=== PATIENT | male | born 1970 | race African-American/Black ===

== ENCOUNTER 2016-11-19 07:39 | Day surgery (SDC) | payer BC ==
[2016-11-17 12:38] LABS: BASOPHILS 0.9 %; BASOPHILS ABSOLUTE 0.04 10/3/uL (0.0-0.16); EOSINOPHILS 2.2 %; HEMATOCRIT 41.2 % (40.0-51.0); HEMOGLOBIN 14.1 g/dL (13.6-17.8); LYMPHOCYTES 29.8 %; LYMPHOCYTES ABSOLUTE 1.33 10/3/uL (0.67-4.30); MEAN CORPUS HGB CONC 34.2 g/dL (32.0-36.0); MEAN CORPUSCULAR HEMOGLOB 32.8 pg (26.0-34.0); MEAN CORPUSCULAR VOLUME 95.8 fL (80-100); MEAN PLATELET VOLUME 9.2 fL (9.2-13.0); MONOCYTES 8.1 %; MONOCYTES ABSOLUTE 0.36 10/3/uL (0.21-1.20); NEUTROPHILS ABSOLUTE 2.64 10/3/uL (2.02-8.40); PLATELET COUNT 237 10/3/uL (150-400); RBC DISTRIBUTION WIDTH 13.1 % (12.0-16.0); WHITE BLOOD CELLS 4.5 10/3/uL (4.5-10.5)
[2016-11-17 12:41] LABS: MANUAL DIFF NO %
[2016-11-17 12:56] LABS: A/G RATIO 1.2 (0.7-1.9); ALBUMIN 3.7 G/DL (3.5-5.0); ALKALINE PHOSPHATASE 95 U/L (45-117); BUN (BLOOD UREA NITROGEN) 12 MG/DL (6-23); CALCIUM, SERUM 8.6 MG/DL (8.5-10.4); CHLORIDE, SERUM 107 MMOL/L (96-112); CO2 (CARBON DIOXIDE) 25 MMOL/L (24-34); CREATININE 0.93 MG/DL (0.70-1.30); GFR AFRICAN AMERICAN 113 ML/MIN (>=60); GFR NON AFRICAN AMERICAN 97 ML/MIN (>=60); GLOBULIN 3.2 G/DL (2.5-4.1); GLUCOSE, SERUM 92 MG/DL (60-99); SGOT(AST) 26 U/L (5-40); SGPT(ALT) 10 U/L (5-65); SODIUM, SERUM 139 MMOL/L (135-148); TOTAL BILIRUBIN 0.7 MG/DL (0-1.2); TOTAL PROTEIN 6.9 G/DL (6.0-8.5)
--- NOTE | ~2016-11-19 | OP ---
Record Of Operation [facility] [address] [place]. [address] NAME: VERO RUANO SR : 66 STATUS : REG [facility]#: [id number] AGE: 45 ADM/REG DATE : 11/19/16 MR#: [id number] REPORT SERV DATE: 11/19/16 DICTATED BY: RAPHAEL KIM DATE: 11/19/16 REPORT STATUS : Draft TRANSCRIBED BY: SEN DATE: 11/19/16 DATE OF PROCEDURE: 11/19/2016 PREOPERATIVE DIAGNOSES: 1. Condyloma acuminata. 2. Benign prostatic hypertrophy, rule out urethral stricture. POSTOPERATIVE DIAGNOSES: 1. Benign prostatic hypertrophy. 2. Condyloma acuminata. OPERATIVE PROCEDURE: 1. Fulguration condyloma. 2. Cystoscopy. ANESTHESIA: General inhalation. SURGEON: Raphael Kim M.D. SPECIMENS: None. DRAINS: None. COMPLICATIONS: None. IMMEDIATE POSTOP: Satisfactory. DESCRIPTION OF PROCEDURE: The patient was brought to the cysto suite, given inhalational anesthetic, and placed in lithotomy position. Perineum and genitalia were prepped and draped in sterile fashion. Condyloma were initially cauterized using a Bovie cautery. There was one area at the penoscrotal junction on the patient's left at about the 5 o'clock position and several smaller condyloma more ventrally on the scrotal area. These were thoroughly fulgurated. No others were noted. At this point, a #20 cystoscope was passed per urethra with video monitoring. The distal urethra was entirely normal. There were no condyloma noted. There were no strictures. The sphincter was normal. Prostate showed bilobar hyperplasia with incomplete visual occlusion of the bladder outlet. The bladder was carefully inspected and no lesions were noted. The orifices were identified. The bladder was reinspected with right angle lens. No additional pathology was found. At this point, the cystoscope was drained. The patient was awakened and sent to recovery in satisfactory condition. /SEN Raphael Record Of Operation [facility] [address] [place]. [address] NAME: VERO RUANO SR : 66 STATUS : REG [facility]#: [id number] AGE: 45 ADM/REG DATE : 11/19/16 MR#: [id number] REPORT SERV DATE: 11/19/16 DICTATED BY: RAPHAEL KIM DATE: 11/19/16 REPORT STATUS : Draft TRANSCRIBED BY: MODL DATE: 11/19/16 Xavier Kim / [id number] CC: Raphael Kim M.D.
[~2016-11-19 07:39] MED LIST: GENVOYA PO; VALTREX5 PO
== END 2016-11-19 16:20 | disposition home or self-care (01) ==
LOC: SDC 07:39
PROVIDERS: Urology
PROC: 0V508ZZ Destruction of Prostate, Via Natural or Artificial Opening Endoscopic (ICD-10-PCS; principal; 2016-11-19 08:45)
DX: N40.0 Benign prostatic hyperplasia without lower urinary tract symptoms (principal); A63.0 Anogenital (venereal) warts; G43.909 Migraine, unspecified, not intractable, without status migrainosus; F32.9 Major depressive disorder, single episode, unspecified; F41.9 Anxiety disorder, unspecified; D64.9 Anemia, unspecified; B20 Human immunodeficiency virus [HIV] disease; F17.200 Nicotine dependence, unspecified, uncomplicated; Z98.890 Other specified postprocedural states
CPT/HCPCS: 71020; 80053; 85025; A9270-GY; J2250; J2405; J3010